=== PATIENT | female | born 1995 | race Caucasian/White ===

== ENCOUNTER 2022-11-08 18:43 | Emergency (ER) | payer SELFPAY ==
--- NOTE | ~2022-11-08 | XR_ITS ---
EXAMINATION: XR chest 1V portable Exam Date/Time: 11/08/2022 19:20 CDT HISTORY: ANTERIOR LEFT SIDED CHEST PAIN THAT RADIATES TO LEFT ARM Comparison: None. RESULT: Lines, tubes, and devices: None. Lungs and pleura: Clear. Cardiomediastinal silhouette: Normal. Other: No acute osseous or upper abdominal finding. IMPRESSION: No acute cardiopulmonary process. Reviewed, dictated and finalized at location K.
[2022-11-08 18:49] VITALS: BP 133/92; PULSE 117; RESP 16; O2SAT 100
[2022-11-08 18:50] VITALS: BP 133/92; O2SAT 100
--- NOTE | 2022-11-08 18:52 | ECG_ITS ---
Measurements Intervals [place] Rate: 113 P: 50 MS: 145 QRS: 9 QRSD: 93 T: 29 QT: 315 QTc: 432 Interpretive Statements SINUS TACHYCARDIA NONSPECIFIC T-WAVE ABNORMALITY ABNORMAL RHYTHM ECG NO PREVIOUS ECG AVAILABLE FOR COMPARISON Electronically Signed On 11-09-2022 11:40:45 CDT by Rita Hoffmann M.D.
[2022-11-08 18:53] VITALS: PULSE 116
[2022-11-08 19:09] LABS: Basophils Percent Auto 0.3 % (0.2-1.2); Eosinophils Absolute Auto 0.2 K/mm3 (0-0.3); Eosinophils Percent Auto 1.6 % (0-4.4); Hematocrit 45.8 % (37.0-47.0); Hemoglobin 15.1 g/dL (12.0-15.0); Immature Granulocyte Absolute 0.04 K/mm3 (0.00-0.031); Immature Granulocyte Percent A 0.4 % (0-0.5); Lymphocytes Absolute Auto 2.34 K/mm3 (0.9-3.2); Lymphocytes Percent Auto 24.5 % (18.3-44.2); Mean Corpuscular Hemoglobin 28.8 pg (26-34); Mean Corpuscular Volume 87.2 fl (80-100); Mean Platelet Volume 9.8 fl (7.4-10.4); Monocytes Absolute Auto 0.7 K/mm3 (0.1-0.6); Monocytes Percent Auto 7.4 % (2.6-8.5); Neutrophils Absolute Auto 6.3 K/mm3 (1.3-6.7); Neutrophils Percent Auto 65.8 % (45.5-73.1); Platelet Count Result 261 k/mm3 (150-375); Red Blood Count 5.25 M/mm3 (4.2-5.4); Red Cell Distribution Width 12.8 % (11.5-14.5); White Blood Count 9.5 K/mm3 (4.5-10.0)
[2022-11-08 19:19] LABS: Prothrombin Time 13.7 Seconds (11.1-14.7)
[2022-11-08 19:21] LABS: Partial Thromboplastin Time 26.9 SECONDS (22.3-36.8)
[2022-11-08 19:25] LABS: Alanine Aminotransferase 42 U/L (6-35); Albumin Level 4.7 g/dL (3.5-5.1); Alkaline Phosphatase 85 U/L (38-126); Anion Gap 8 mmol/L (8-16); Aspartate Amino Transferase 39 U/L (14-36); Bilirubin,Total 0.6 mg/dL (0.2-1.3); Blood Urea Nitrogen 8 mg/dL (7-17); Calcium 9.4 mg/dL (8.4-10.2); Carbon Dioxide 27 mmol/L (22-30); Chloride 103 mmol/L (98-107); Estimated CRCL calculation 126 ml/min; Estimated Glomerular Filt Rate > 60; Glucose 90 mg/dL (65-110); Lipase 334 U/L (23-300); Potassium 4.1 mmol/L (3.4-5.0); Sodium 138 mmol/L (137-145)
[2022-11-08 19:37] LABS: Troponin I < 0.012 ng/mL (0.000-0.034)
[2022-11-08 19:52] LABS: D Dimer < 0.27 ug/mL (<0.48)
--- NOTE | 2022-11-08 19:55 | ED.CHESTPAIN ---
HPI - Chest Pain General Chief Complaint: Chest Pain Stated Complaint: Chest pain Time Seen by Provider: 11/08/22 18:55 History of Present Illness HPI narrative: 27 y/o F reports for evaluation of intermittent chest pain for the past 2-3 days. Patient states the pain has been substernal, intermittent and dull until she developed a sharp, pinpoint pain in her L anterior chest wall last night. States the sharp pain has been constant today and at times radiates into her L arm. She reports intermittent dyspnea. She had a cough a few weeks ago which has since resolved. She states the substernal pain worsens with deep inspiration. Denies fever, abdominal pain, n/v/d. She does state at times it feels as if her heart is fluttering. Pt does endorse stressors surrounding work and anxiety. She is not being treated for anxiety and does not have a PCP. Denies lower extremity edema, calf pain. Related Data Allergies Allergy/AdvReac Type Severity Reaction Status Date / Time amoxicillin Allergy Unknown Verified 11/08/22 18:49 Review of Systems Review of Systems: CONSTITUTIONAL: Denies fever, chills EYES: Denies visual changes, redness, or discharge. ENT: Denies rhinorrhea, congestion, sore throat, or otalgia. CARDIOVASCULAR: See HPI RESPIRATORY: See HPI GASTROINTESTINAL: Denies abdominal pain, nausea, vomiting, or diarrhea. GENITOURINARY: Denies dysuria or hematuria. SKIN: Denies rash or itching. MUSCULOSKELETAL: Denies back pain, joint pain, or myalgia. NEUROLOGIC: Denies headache, numbness, dizziness, or weakness. PSYCHIATRIC: Denies anxiety or depression. Exam Narrative: GENERAL: Well-appearing, in no acute distress. Patient resting comfortably exam bed. She is pleasant and conversational. HEAD: Normocephalic EYES: PERRLA ENT: Nares clear. Mucous membranes moist. Oropharynx without tonsillar hypertrophy exudate or other lesions. NECK: Supple. CHEST: No respiratory distress. Clear to auscultation, no adventitious breath sounds. HEART: Regular rate and rhythm. No murmur heard. Normal peripheral pulses. ABDOMEN: Soft, nontender, normal active bowel sounds. EXTREMITIES: Normal range of motion. No edema. SKIN: Warm, dry, no rash. NEURO: No focal deficits. Alert and oriented x3. PSYCH: Normal mood and affect. Course Vital Signs Vital signs: Vital Signs Pulse Rate 117 H 11/08/22 18:49 Respiratory Rate 16 11/08/22 18:49 Blood Pressure 133/92 H 11/08/22 18:49 Pulse Oximetry 100 11/08/22 18:49 Pulse Rate 96 11/08/22 21:03 Respiratory Rate 18 11/08/22 21:03 Blood Pressure 111/80 11/08/22 21:03 Pulse Oximetry 100 11/08/22 21:03 MDM - Chest Pain MDM Narrative Medical decision making narrative: 27 y/o F reports for evaluation of intermittent chest pain for the past 2-3 days. Initial vitals revealed tachycardia 117, otherwise stable. She is neurovascular intact on exam, appears anxious and endorses anxiety. CBC unremarkable other than hemoconcentration. Chemistries significant for mildly elevated AST and ALT and lipase of 334. Her abdomen is soft and nontender, negative Felix's. Low suspicion for pancreatitis or gallbladder disease. Troponins normal. D-dimer normal. Chest x-ray without acute cardiopulmonary abnormalities. EKG was sinus tachycardia 113, no ST elevations or depressions. Patient received 2 L of fluids and Ativan with resolution of symptoms and improvement in tachycardia. I suspect her symptoms are secondary to anxiety. Hydroxyzine sent to pharmacy prn for anxiety. Advised follow-up with her PCP within the following week. Referral provided. Strict ED return precautions discussed. Patient agrees with the plan verbalized understanding. Discharged in stable condition. Medical Records Data Attestation: I reviewed the patient's medical records. Lab Data Attestation: I reviewed the patient's lab results. 11/08/22 18:59 11/08/22 18:59 Labs: Lab Result
[2022-11-08 20:01] VITALS: BP 113/75; PULSE 109; RESP 21; O2SAT 100
[2022-11-08] MEDS: LORazepam INJ (*CRX) 2 MG/ML VIAL 0.5 MG IV PUSH ×2 (20:16→22:14)
[2022-11-08] MEDS: SODIUM CHLORIDE 0.9% IV 1,000 ML 999 ML IV CONT ×2 (20:41→22:21)
[2022-11-08 21:03] VITALS: BP 111/80; PULSE 96; RESP 18; O2SAT 100
[2022-11-08 23:02] LABS: Troponin I < 0.012 ng/mL (0.000-0.034)
== END 2022-11-08 23:37 | disposition home or self-care (01) ==
PROVIDERS: Emergency Medicine; Emergency Provider Physician Assistant
DX: R07.89 Other chest pain (principal); F41.9 Anxiety disorder, unspecified; R00.0 Tachycardia, unspecified; R94.31 Abnormal electrocardiogram [ECG] [EKG]
CPT/HCPCS: 36415; 71045; 80053; 83690; 84484; 85025; 85380; 85610; 85730; 93005; 96361; 96374; 96376; 99284; J2060; J7030